=== PATIENT | female | born 1965 | race Caucasian/White ===

== ENCOUNTER → 2016-06-24 | Outpatient (CLI) | payer OTHER ==
[~2016-06-24] MED LIST: B12 INJ.,1000 MCG/M; BUPROPION300 MG; CALCITONIN; CALTRATE 600 +1 TA1 PO; CALTRATE 600600 MG; FORTEO250 MCG/ML SC; LISINOPRIL/HCTZ1 TA3 PO; METHOCARBAMOL750 M1; MIACALCIN200 IU/ACT; MULTI VITAMINS1 TA1; NORDITROPI5 MG/1.5 M SC; NORDITROPI5 MG/1.52; PLAVIX 75MG TAB75 MG PO; SINEMET CR 50 M1 TE1 PO; SINEMET CR 50/1 EACH NG; SINEMET CR 50/1 EACH PO; TESTOSTERONE IM; TRAMADOL 50MG T50 MG PO; VITAMIN B121 TA1 IM; VITAMIN D2000 I1; VITAMIN D31000 IU PO; WELLBUTRIN XL300 MG PO; [UNRECOGNIZED DRUG - OTHER]
--- NOTE | 2016-06-25 10:09 | RADIOLOGY REPORT PS360 ---
MRI-BRAIN W/O HISTORY: SYNCOPE AND COLLAPSE, CONFUSION AND DISORIENTATION COMPARISON: 04/18/2012 TECHNIQUE: Standard multiplanar multiecho sequences are performed without contrast. FINDINGS: No midline shift, mass effect, intracranial hemorrhage, or hydrocephalus is evident. Structures are midline. There is some mild asymmetric prominence of the right lateral ventricle similar to the previous exam. No abnormal white matter signal intensity evident. No evidence of acute infarction. No restricted diffusion. Hippocampal gyri have an unremarkable appearance and the temporal heart is are symmetric. The cerebellopontine angles, cerebellum, and brainstem are unremarkable. Mild mucosal thickening right ethmoid sinus. Mild opacification left mastoid sinus. Unremarkable pituitary. Flow void artifact is present within the [place] as expected. IMPRESSION: 1. No change from 04/18/2012 with no acute intracranial pathology. 2. Mild right paranasal sinus and left mastoid inflammatory change
--- NOTE | 2016-06-25 10:09 | RADIOLOGY REPORT PS360 ---
MRI-BRAIN W/O HISTORY: SYNCOPE AND COLLAPSE, CONFUSION AND DISORIENTATION COMPARISON: 04/18/2012 TECHNIQUE: Standard multiplanar multiecho sequences are performed without contrast. FINDINGS: No midline shift, mass effect, intracranial hemorrhage, or hydrocephalus is evident. Structures are midline. There is some mild asymmetric prominence of the right lateral ventricle similar to the previous exam. No abnormal white matter signal intensity evident. No evidence of acute infarction. No restricted diffusion. Hippocampal gyri have an unremarkable appearance and the temporal heart is are symmetric. The cerebellopontine angles, cerebellum, and brainstem are unremarkable. Mild mucosal thickening right ethmoid sinus. Mild opacification left mastoid sinus. Unremarkable pituitary. Flow void artifact is present within the [place] as expected. IMPRESSION: 1. No change from 04/18/2012 with no acute intracranial pathology. 2. Mild right paranasal sinus and left mastoid inflammatory change
== END ==
LOC: RAD 15:15
DX: R55 Syncope and collapse (principal); G44.85 Primary stabbing headache; F99 Mental disorder, not otherwise specified

== ENCOUNTER → 2016-10-04 | Outpatient (CLI) | payer OTHER ==
[2016-10-04 11:04] LABS: BUN 21 mg/dL (7-18)
[2016-10-04 11:18] LABS: GFR (ESTIMATED) 66 ML/MIN (59-)
[2016-10-05 08:41] LABS: Vitamin D, 25-Hydroxy 79.3 ng/mL (30.0-100.0)
== END ==
LOC: LAB 09:48
PROVIDERS: Internal Medicine Endocrinology, Diabetes & Metabolism
DX: M81.8 Other osteoporosis without current pathological fracture (principal); E53.8 Deficiency of other specified B group vitamins; E55.9 Vitamin D deficiency, unspecified

== ENCOUNTER → 2017-03-28 | Outpatient (CLI) | payer OTHER ==
--- NOTE | 2017-03-28 11:32 | RADIOLOGY REPORT PS360 ---
C-SPINE 2V FLEX EXTENSION CLINICAL INDICATION: CERVICAL STENOSIS ORDERING PHYSICIAN: FRANCISCA MEYER PATIENT AGE: 51 years COMPARISON: 04/01/2016 FINDINGS: Flexion-extension views are performed of the cervical spine. A bone plate is present in the anterior approach from C3 to C7. The bone plate appears intact. Flexion and extension views show no abnormal subluxation in flexion or extension.. Disc spacer device is once again noted at C3-C4 C5-C6 and C6-C7. No acute fracture or dislocation. No lytic or blastic change. There has been prior osteotomy and removal of the right first rib. IMPRESSION: Postsurgical changes as described above with no abnormal subluxation in flexion or extension. No change from 04/01/2016
--- NOTE | 2017-03-28 12:51 | RADIOLOGY REPORT PS360 ---
EXAM: CERVICAL SPINE 4 OR 5 VIEWS HISTORY: CERVICAL STENOSIS ORDERING PHYSICIAN: FRANCISCA MEYER PATIENT AGE: 51 years COMPARISON: 04/01/2016 FINDINGS: Prior anterior cervical disc fusion from C3 to C7 as previously described with disc spacers at C3-C4 C5-C6 and C6-C7. There is normal alignment. No fracture or dislocation. The right first rib is missing. Multiple interpedicular screws are present in the upper thoracic spine with stabilizing rods. IMPRESSION: Overall no change status post anterior cervical disc fusion with good alignment
== END ==
LOC: RAD 10:53
DX: M48.02 Spinal stenosis, cervical region (principal)

== ENCOUNTER → 2017-04-04 | Outpatient (CLI) | payer OTHER ==
[2017-04-04 12:29] LABS: BUN 19 mg/dL (7-18)
[2017-04-04 12:31] LABS: GFR (ESTIMATED) 88 ML/MIN (59-)
[2017-04-05 09:38] LABS: Vitamin D, 25-Hydroxy 94.5 ng/mL (30.0-100.0)
== END ==
LOC: LAB 10:56
PROVIDERS: Internal Medicine Endocrinology, Diabetes & Metabolism
DX: E55.9 Vitamin D deficiency, unspecified (principal); E53.8 Deficiency of other specified B group vitamins; Z71.9 Counseling, unspecified